=== PATIENT | female | born 1985 | race Caucasian/White ===

== ENCOUNTER 2025-02-07 23:35 | Emergency (ER) | payer OTHER ==
[2025-02-08] MEDS: Naproxen 500 MG Tab PO ONE (00:57)
== END 2025-02-08 03:15 | disposition home or self-care (01) ==
LOC: JD.ED 23:35
DX: S01.511A Laceration without foreign body of lip, initial encounter (principal); S09.90XA Unspecified injury of head, initial encounter; K03.81 Cracked tooth; I10 Essential (primary) hypertension; Z79.899 Other long term (current) drug therapy; W01.198A Fall on same level from slipping, tripping and stumbling with subsequent striking against other object, initial encounter; Y93.89 Activity, other specified
CPT/HCPCS: 12011; 70486; 99283; A9270; 99282